=== PATIENT | male | born 1945 | race Caucasian/White ===

== ENCOUNTER 2018-06-10 09:35 | Inpatient (IN) ==
--- OUTSIDE RECORDS SUMMARY | 2018-06-10 09:38 | External Medical Summary | Continuity of Care Document ---
:1945 Author Name Rafy Wright Address Unavailable Unavailable , Care Team Providers Name Role Phone Sherie Perrin DO Unavailable [email or web address] Unavailable Unavailable Problems Active medical history not documented Allergies and Adverse Reactions Allergy history not documented Medications Medications not documented Procedures Procedures not documented Immunizations Immunizations not documented Plan of Treatment Planned Observations Planned Goals not documented Results No Known Results Results not documented
[2018-06-10 10:18] LABS: Basophils # (auto) 0.03 K/uL (0-0.2); Basophils % (auto) 0.3 %; Eosinophils # (auto) 0.12 K/uL (0-0.5); Eosinophils % (auto) 1.3 %; Hematocrit (blood only) 40.4 % (42-52); Hemoglobin 14.1 g/dL (14.0-18.0); Immature Granulocytes # (auto) 0.03 K/uL (0.00-0.02); Immature Granulocytes % (auto) 0.3 %; Lymphocytes # (auto) 3.53 K/uL (1.2-3.4); Lymphocytes % (auto) 37.4 %; Mean Corpuscular Hgb Conc 34.9 g/dL (32-36); Mean Corpuscular Volume 86.7 fL (80-100); Monocytes # (auto) 0.63 K/uL (0.11-0.59); Monocytes % (auto) 6.7 %; Neutrophils # (auto) 5.11 K/uL (1.4-6.5); Platelet Count 248 K/uL (130-400); RDW Coefficient of Variation 13.4 % (11.5-14.5); RDW Standard Deviation 42.5 fL (36.4-46.3); Red Blood Count 4.66 M/uL (4.7-6.1); White Blood Count 9.45 K/uL (4.8-10.8)
--- NOTE | 2018-06-10 10:21 | XRay Report ---
XR chest 1V portable CLINICAL HISTORY: Chest Pain dyspnea COMPARISON STUDY: No previous studies for comparison. FINDINGS: The bones soft tissues and hemidiaphragms are normal. The cardiomediastinal silhouette is n ormal. The lungs are clear. The pulmonary vasculature is normal. IMPRESSION: Negative chest. The above report was generated using voice recognition software. It may contain grammatical, syntax or spelling errors. Electronically signed by: Jerome Munguia M.D. 06/10/2018 10:19 AM
[2018-06-10 10:27] LABS: BUN Creatinine Ratio 14.2 (10-20); Calcium 8.9 mg/dl (8.5-10.1); Creatinine Clr Calc Pharmacy 67.9 ml/min; Est GFR (Non-African American) 67.3; Potassium 3.5 mmol/L (3.5-5.1)
[2018-06-10 10:46] LABS: Albumin Globulin Ratio 1.1 (0.9-2); Bilirubin,Total 0.6 mg/dl (0.2-1); Globulin 3.5 gm/dl (2.5-4.0); Total Protein 7.5 gm/dl (6.4-8.2); Troponin I 0.105 ng/ml (0-0.045)
[2018-06-10] MEDS ORDERED: dilTIAZem HCl 5 MG/ML 5 ML VIAL IV STA (10:51)
[2018-06-10] MEDS ORDERED: ASPIRIN CHEW 324 MG PO STA (10:52)
[2018-06-10] MEDS: dilTIAZem HCl 125 MG in DEXTROSE 5% 100 ML IV SCH ×2 (12:03→22:59)
--- NOTE | 2018-06-10 13:10 | History & Physical Report ---
Date of Service June 10, 2018 Assessment & Plan (1) A-fib: - Admit to tele - New onset afib with RVR - likely has been ongoing for years however has not been caught on EKG until today while he was at a routine PCP appt. EKG reviewed - Cardiology consulted- [facility]: pt moving to [place] at the end of the month -so will need to have cardiology followup established. - Cardizem gtt started in the ER - initiate Cardizem 30 mg TID now and can convert to ER with am dosing if works well - Start Eliquis 5 mg BID - 2D echo - Trend troponins x 2 more sets - PT/OT consults (2) Dizziness: Secondary to above (3) Elevated troponin: - Trop 0.105, will trend x2 more sets - Likely demand ischemia due to afib (4) HTN (hypertension): - Continue amlodipine 10 mg daily, asa 81 mg daily, losartan 50 mg PO BID - Initiation of cardizem as above (5) HLD (hyperlipidemia): - Continue statin therapy (6) DM II (diabetes mellitus, type II), controlled: - A1C recently checked by PCP and reported as 7 by pt. - ISS with accuchecks while admitted - Hold metformin - HH/DM diet (7) DVT prophylaxis: - teds, scds, lovenox subq History of Present Illness Primary Care Provider: Guera García PA-C This is a 72 yo M with PMHx of afib, HTN, HLD, DM II and remote hx of tobacco use, [facility] with [facility]. Pt notes he has been experiencing episodes of lightheadedness on and off for about the past 3 years, however it has become much more often in the last month, where he has this sensation between 1-4x daily. It is a quickly fleeting moment of lightheadedness, which lasts for several seconds to a few minutes and normally improves when he sits down to rest. The pt is a very active individual who is employed by [employer] and works 2-3d per week, fishes as a hobby, and is an avid ping pong player at [place]; [facility] he [facility]. He denies any shortness of breath, chest pain, heaviness or other cardiac complaints. Allergies Allergy/AdvReac Type Severity Reaction Status Date / Time No Known Allergies Allergy Unverified 06/10/18 11:06 Home Medications Home Medications Medication Instructions Recorded Confirmed Type amlodipine 10 mg PO DAILY 06/10/18 06/10/18 History aspirin [Aspirin Low Dose] 81 mg PO DAILY 06/10/18 06/10/18 History atorvastatin 40 mg PO HS 06/10/18 06/10/18 History calcium carbonate 500 mg PO DAILY 06/10/18 06/10/18 History hydrochlorothiazide 12.5 mg PO DAILY 06/10/18 06/10/18 History losartan 50 mg PO BID 06/10/18 06/10/18 History metformin 1,000 mg PO BID 06/10/18 06/10/18 History ranitidine HCl 150 mg PO BID 06/10/18 06/10/18 History tamsulosin 0.4 mg PO DAILY 06/10/18 06/10/18 History Past Med/Surg History Medical History HLD (hyperlipidemia) HTN (hypertension) DM II (diabetes mellitus, type II), controlled A-fib (Acute) Elevated troponin (Acute) No significant past medical history Surgical History No significant past surgical history Social History Preferred Language: Citizen Of [place] Communication Ability: Effective Roll Wrapper Required: No Beliefs That Will Affect Care: None Current Living Situation: Spouse Other Information That Helps Us Care for You: No Feels Safe at Home: Yes Safety Concerns: Feels Safe At This Time Smoking Status: Light tobacco smoker Tobacco Type: cigars Cigarettes Per Day: occasion when golfing Do You Dip or Chew Tobacco: No Smoking End Date: cigarrettes ended 1971 Second Hand Exposure: No Tobacco Cessation Education Requested by Patient: No Hx Alcohol Use: Yes Alcohol type: wine Hx Substance Use: No Review of Systems Review of Systems: Constitutional: No fever, sweats or chills, + lightheadedness per HPI. Eyes: No diplopia, no worsening or blurred vision ENT: normal hearing, no trouble swallowing Respiratory: No cough, sputum, dyspnea at rest or on exertion Cardiovascular: No chest pain, tightness or palpitations Abdomen: No pain, nausea, vomiting, diarrhea or constipation Musculoskeletal: No joint pain, calf pain, swelling Neurologic: No weakness, numbness/tingling, or balance problems Psychiatric: No anxiety or depression Skin: No rash or itch Physical Exam Physical Exam: General: awake, alert, no apparent distress, appears younger than stated age Head: Normocephalic, atraumatic ENT: PERRL, EOMI, no pharyngeal exudate, mucous membranes moist Chest: Clear to auscultation, on room air, no adventitious breath sounds Cardiac: irregularly irregular, no murmur, no JVD, normal peripheral pulses, good capillary refill Abdominal: NABS x 4 quadrants, soft, nontender to palpation, no rebound, guarding or tenderness Extremities: Normal inspection, no peripheral edema or erythema, calfs nontender to palpation Psych: Normal mood and affect Neuro: AAO x 3, strength intact bilaterally and related 5/5, no motor deficits, speech is clear, no peripheral sensory deficits Results & Data Vital Signs (Past 12 Hours) Vital Signs Temp Pulse Resp BP Pulse Ox 06/10/18 11:31 100 H 23 124/91 94 06/10/18 11:01 107 H 19 134/95 95 06/10/18 10:31 107 H 26 H 117/89 06/10/18 10:02 111 H 17 112/90 95 06/10/18 09:51 95 06/10/18 09:49 36.5 C 100 H 18 152/93 H 95 06/10/18 09:45 111 H 21 152/93 H 93 Diagnostic Findings XR chest 1V portable CLINICAL HISTORY: Chest Pain dyspnea COMPARISON STUDY: No previous studies for comparison. FINDINGS: The bones soft tissues and hemidiaphragms are normal. The cardiomediastinal silhouette is normal. The lungs are clear. The pulmonary vasculature is normal. IMPRESSION: Negative chest. ECG Additional Comments: 10-JUN-2018 09:45:07 [facility]-EDSTAT ROUTINE RETRIEVAL Atrial fibrillation Nonspecific T wave abnormality Abnormal ECG No previous ECGs available 25mm/s 10mm/mV 150Hz 9.0.8 12SL 241 INGE: 11 Referred by: REFERRED SELF Unconfirmed Vent. rate 91 BPM IN interval * ms QRS duration 94 ms QT/QTc 366/450 ms P-R-T axes * 15 3 Code Status & VTE Plan Code Status Full code- no heroic measures Supervising Physician Co-Signing Physician Notes Pt seen/examined in conjunction with HANY Snow. Orders and plan of admission and then DC formulated with HANY. 72 y/o M Hx HTN, HLD, DM II, BPH, GERD. Presents with lightheadedness - AF RVR on arrival. Denies prior knowledge of AF or history of CAD. Has not had any episodes of CP. The pt was initially admitted due to a relatively high CHADS. After receiving a bolus of Cardizem, the pt converted to a sinus rhythm. OE AAO x 3 S1,2 irregular CTAB NT, ND, BS + No CCE No deficits P: We are pending word from cardiology to offer the pt outpt follow-up. We would be placing him on Metoprolol and Eliquis and may want to hold his Nor vasc. No other changes will be effected to his current regimen. (1) A-fib Atrial fibrillation type: unspecified Qualified Code(s): I48.91 - Unspecified atrial fibrillation
[2018-06-10] MEDS ORDERED: ONDANSETRON INJ 2 MG/ML 2 ML VIAL IV PRN (13:13)
[2018-06-10] MEDS ORDERED: ACETAMINOPHEN 325 MG TAB PO PRN (13:13)
[2018-06-10] MEDS ORDERED: ENOXAPARIN INJ 40 MG/0.4 ML SYR SQ SCH (13:15)
--- NOTE | 2018-06-10 14:20 | Emergency Department Note ---
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 The patient reports that he was evaluated by his PCP earlier today for a persistent lightheadedness and was referred to the ER after they obtained an EKG which showed new onset a-fib. He states that his lightheadedness feels like right before youre going to sleep and notes he did feel as if he were about pass out. He denies any chest pain, shortness of breath, nausea, vomiting, diarrhea or numbness but reports he has been weak. No other exacerbating or remitting factors at this time. Home Medications Home Medications Medication Instructions Recorded Confirmed Type amlodipine 10 mg PO DAILY 06/10/18 06/10/18 History aspirin [Aspirin Low Dose] 81 mg PO DAILY 06/10/18 06/10/18 History atorvastatin 40 mg PO HS 06/10/18 06/10/18 History calcium carbonate 500 mg PO DAILY 06/10/18 06/10/18 History hydrochlorothiazide 12.5 mg PO DAILY 06/10/18 06/10/18 History losartan 50 mg PO BID 06/10/18 06/10/18 History metformin 1,000 mg PO BID 06/10/18 06/10/18 History ranitidine HCl 150 mg PO BID 06/10/18 06/10/18 History tamsulosin 0.4 mg PO DAILY 06/10/18 06/10/18 History Allergies Allergy/AdvReac Type Severity Reaction Status Date / Time No Known Allergies Allergy Unverified 06/10/18 11:06 Past Med/Surg History Medical History HLD (hyperlipidemia) HTN (hypertension) DM II (diabetes mellitus, type II), controlled A-fib (Acute) Elevated troponin (Acute) No significant past medical history Surgical History No significant past surgical history Social History Preferred Language: Egyptian Communication Ability: Effective Training Executive Required: No Beliefs That Will Affect Care: None Current Living Situation: Spouse Other Information That Helps Us Care for You: No Feels Safe at Home: Yes Safety Concerns: Feels Safe At This Time Smoking Status: Light tobacco smoker Tobacco Type: cigars Cigarettes Per Day: occasion when golfing Do You Dip or Chew Tobacco: No Smoking End Date: cigarrettes ended 1971 Second Hand Exposure: No Tobacco Cessation Education Requested by Patient: No Hx Alcohol Use: Yes Alcohol type: wine Hx Substance Use: No Review of Systems See HPI for pertinent positives & negatives. and A total of 10 systems reviewed and were otherwise negative Physical Exam Vital Signs Vital Signs - 24 hr 06/10/18 09:45 06/10/18 09:49 06/10/18 09:51 Temperature 36.5 C Temperature Source Oral Sepsis Recent Fever Within 48 Hours No Sepsis New/Unexplained Change in Mental Status No Sepsis Action Taken by Nursing No Action Required Pulse Rate 111 H 100 H Pulse Rate from SpO2 Sensor 92 H Respiratory Rate 21 18 Blood Pressure 152/93 H 152/93 H Blood Pressure Mean 112 112 Pulse Oximetry 93 95 95 Oxygen Delivery Method Room Air Room Air 06/10/18 10:02 06/10/18 10:31 06/10/18 11:01 Temperature Temperature Source Sepsis Recent Fever Within 48 Hours Sepsis New/Unexplained Change in Mental Status Sepsis Action Taken by Nursing Pulse Rate 111 H 107 H 107 H Pulse Rate from SpO2 Sensor 84 78 Respiratory Rate 17 26 H 19 Blood Pressure 112/90 117/89 134/95 Blood Pressure Mean 97 98 108 Pulse Oximetry 95 95 Oxygen Delivery Method 06/10/18 11:31 06/10/18 12:01 06/10/18 12:31 Temperature Temperature Source Sepsis Recent Fever Within 48 Hours Sepsis New/Unexplained Change in Mental Status Sepsis Action Taken by Nursing Pulse Rate 100 H 112 H 96 H Pulse Rate from SpO2 Sensor 80 75 93 H Respiratory Rate 23 23 23 Blood Pressure 124/91 127/87 125/98 Blood Pressure Mean 102 100 107 Pulse Oximetry 94 94 95 Oxygen Delivery Method 06/10/18 13:01 06/10/18 13:31 06/10/18 14:01 Temperature Temperature Source Sepsis Recent Fever Within 48 Hours Sepsis New/Unexplained Change in Mental Status Sepsis Action Taken by Nursing Pulse Rate 109 H 107 H 108 H Pulse Rate from SpO2 Sensor 82 85 102 H Respiratory Rate 20 24 14 Blood Pressure 116/90 108/91 109/91 Blood Pressure Mean 98 96 97 Pulse Oximetry 93 96 91 Oxygen Delivery Method GENERAL: Sitting up in bed, alert, well appearing, well nourished, no distress, non-toxic EYE EXAM: normal conjunctiva. OROPHARYNX: no exudate, no erythema, lips, buccal mucosa, and tongue normal and mucous membranes are moist NECK: supple, no nuchal rigidity, no adenopathy, non-tender LUNGS: Clear to auscultation. Normal chest wall mechanics HEART: Tachycardic. No murmurs, S1 normal and S2 normal ABDOMEN: abdomen soft, non-tender, normo-active bowel sounds, no masses, no rebound or guarding. BACK: Back is symmetrical on inspection and there is no deformity, no midline tenderness, no CVA tenderness. SKIN: no rashes and no bruising UPPER EXTREMITIES: upper extremities are grossly normal. LOWER EXTREMITIES: No pitting edema. NEURO EXAM: Normal sensorium, cranial nerves II-XII grossly intact, normal speech, no gross weakness of arms, no gross weakness of legs. Course ED COURSE: Vital signs were reviewed and showed tachycardia. The patients medical record was reviewed The above diagnostic studies were performed and reviewed. ED treatments and interventions as stated above. 1000: The patient was evaluated in room C4. A complete history and physical examination was performed. 1050: Upon reevalaution, the patient's heart rate was in the 117s-120s. 1142: I discussed the patient's case with Dr. Szymanski - [facility] Hospitalist. He will evaluate the patient for further management. 1150: .I discussed my findings with the patient and he understands and agrees with the treatment plan. Based on the patients age, coexisting illnesses, exam and lab findings the decision to treat as an inpatient was made. The patient remained stable while under my care. The patient will be evaluated for further management. Administered Medications Diltiazem HCl 125 mg/ Dextrose 125 mls @ 5 mls/hr IV .Q24H [facility]; Protocol Stop: 07/10/18 10:59 Last Titration: 06/10/18 13:28 Dose: 10 mg/hr, 10 mls/hr Documented by: [id number] Admin: 06/10/18 12:03 Dose: 5 mg/hr, 5 mls/hr Documented by: [id number] Cosigned by: [id number] Discontinued Medications Aspirin (Aspirin) 324 mg PO NOW STA Stop: 06/10/18 10:53 Last Admin: 06/10/18 11:22 Dose: 324 mg Documented by: [id number] Diltiazem HCl (Cardizem) 5 mg IV NOW STA Stop: 06/10/18 10:52 Last Admin: 06/10/18 11:22 Dose: 5 mg Documented by: [id number] Cosigned by: [id number] Medical Decision Making Differential Diagnosis Differential diagnoses includes but is not limited to acute coronary syndrome, m yocardial infarction, pericarditis, pulmonary embolus, aortic dissection, pneumonia, pneumothorax, musculoskeletal, shingles, esophageal. Medical Records Attestation: I reviewed the patient's medical records. Home Medications Current Medication List: was personally reviewed by me Laboratory Data Attestation: I reviewed the patient's lab results. Result diagrams: 06/10/18 09:18 06/10/18 09:18 Lab Results 06/10/18 06/10/18 Range/Units 09:18 09:18 WBC 9.45 (4.8-10.8) K/uL RBC 4.66 L (4.7-6.1) M/uL Hgb 14.1 (14.0-18.0) g/dL Hct 40.4 L (42-52) % MCV 86.7 (80-100) fL MCH 30.3 (25-34) pg MCHC 34.9 (32-36) g/dL RDW Std Deviation 42.5 (36.4-46.3) fL RDW Coeff of Nancy 13.4 (11.5-14.5) % Plt Count 248 (130-400) K/uL MPV 11.0 H (7.4-10.4) fL Immature Gran % (Auto) 0.3 % Neut % (Auto) 54.0 % Lymph % (Auto) 37.4 % [place] % (Auto) 6.7 % Eos % (Auto) 1.3 % Baso % (Auto) 0.3 % Immature Gran # (Auto) 0.03 H (0.00-0.02) K/uL Neut # (Auto) 5.11 (1.4-6.5) K/uL Lymph # (Auto) 3.53 H (1.2-3.4) K/uL [place] # (Auto) 0.63 H (0.11-0.59) K/uL Eos # (Auto) 0.12 (0-0.5) K/uL Baso # (Auto) 0.03 (0-0.2) K/uL Sodium 139 (136-145) mmol/L Potassium 3.5 (3.5-5.1) mmol/L Chloride 107 (98-107) mmol/L Carbon Dioxide 26 (21-32) mmol/L Anion Gap 6.0 (3-11) BUN 15 (7-18) mg/dl Creatinine 1.08 (0.6-1.4) mg/dl Est Cr Clr Drug Dosing 67.9 ml/min Est GFR ( Amer) 78.0 Est GFR (Non-Af Amer) 67.3 BUN/Creatinine Ratio 14.2 (10-20) Glucose 161 H (70-99) mg/dl Calcium 8.9 (8.5-10.1) mg/dl Total Bilirubin 0.6 (0.2-1) mg/dl AST 14 L (15-37) U/L ALT 27 (12-78) U/L Alkaline Phosphatase 98 (45-117) U/L Troponin I 0.105 H* (0-0.045) ng/ml Total Protein 7.5 (6.4-8.2) gm/dl Albumin 4.0 (3.4-5.0) gm/dl Globulin 3.5 (2.5-4.0) gm/dl Albumin/Globulin Ratio 1.1 (0.9-2) Lipase 123 (73-393) U/L Imaging Data Radiologist's Impression: Radiology results as stated below per my review and the radiologist's interpretation: XR chest 1V portable CLINICAL HISTORY: Chest Pain dyspnea COMPARISON STUDY: No previous studies for comparison. FINDINGS: The bones soft tissues and hemidiaphragms are normal. The cardiomediastinal silhouette is normal. The lungs are clear. The pulmonary vasculature is normal. IMPRESSION: Negative chest. The above report was generated using voice recognition software. It may contain grammatical, syntax or spelling errors. Electronically signed by: Jerome Munguia M.D. 06/10/2018 10:19 AM ECG Data Attestation: I personally reviewed and interpreted this ECG as follows: Indication: weakness Rate (beats per minute): 91 Rhythm: atrial fibrillation Findings: + other (normal axis, poor baseline in aVF); no PVC Blood Pressure Blood Pressure Findings: Normal blood pressure Blood Pressure Disposition: did not require urgent referral MDM Narrative Patient is a 72-year-old male who presents and referred in by PCP for EKG showing A. fib RVR in combination with lightheadedness and weakness. This is been worse over the past 3 months. Labs were obtained and showed no significant leukocytosis or anemia. BMP along with LFTs bilirubin was unremarkable. Troponin was detectable at 0.105. Lipase was normal. Patient denies any chest pain or shortness of breath. He was given aspirin fluids and placed on a Cardizem drip and given IV bolus of Cardizem. With him and his significant other were updated bedside. They were discussed with the hospitalist patient was admitted for A. fib with RVR and a slightly elevated troponin which I question if it secondary to demand ischemia. Patient was monitored closely while in the ER. Impression & Plan A-fib, Elevated troponin, Dizziness Critical Care Time I have personally spent 35 minutes of critical care time in the direct management of this patient. This includes bedside care, interpretation of diagnostic studies, and testing, discussion with consultants, patient, and family members, and other required patient management activities. This 35 minutes is in excess of all separately billable procedures. Critical Care Time: Yes Total Critical Care Time: 35 Discharge Plan Visit Data Chief Complaint: Cardiac Assessment Stated Complaint: dizzy/weakness ED Provider: Jhon Montalvo Discharge Problem: A-fib, Elevated troponin, Dizziness Patient Disposition: Being Evaluated by Hospitalist Forms Stand Alone Forms: My [facility] Prescriptions Prescriptions: No Action losartan 50 mg Tablet 50 mg PO BID RF: 0 atorvastatin 80 mg Tablet 40 mg PO HS RF: 0 aspirin [Aspirin Low Dose] 81 mg Tablet,Delayed Release (Dr/Ec) 81 mg PO DAILY RF: 0 calcium carbonate 500 mg calcium (1,250 mg) Tablet 500 mg PO DAILY RF: 0 tamsulosin 0.4 mg Capsule 0.4 mg PO DAILY RF: 0 amlodipine 10 mg Tablet 10 mg PO DAILY RF: 0 metformin 1,000 mg Tablet 1,000 mg PO BID RF: 0 ranitidine HCl 150 mg Tablet 150 mg PO BID RF: 0 hydrochlorothiazide 25 mg Tablet 12.5 mg PO DAILY RF: 0 Referrals Referrals: Guera García PA-C [Primary Care Provider] - Discharge Problem: A-fib Qualifiers: Atrial fibrillation type: unspecified Qualified Code(s): I48.91 - Unspecified atrial fibrillation The scribe's documentation has been prepared under my direction and personally reviewed by me in its entirety. I confirm that the note above accurately reflects all work, treatment, procedures, and medical decision making performed by me.
[2018-06-10] MEDS ORDERED: DEXTROSE 50% 50 ML SYRINGE IV PRN (14:50)
[2018-06-10] MEDS ORDERED: GLUCAGON FOR INJ 1 MG VIAL SQ PRN (14:50)
[2018-06-10] MEDS ORDERED: GLUCOSE 10 TABS/TUBE PO PRN (14:50)
[2018-06-10] MEDS ORDERED: GLUCOSE 40% GEL 15 GM TUBE PO PRN (14:50)
[2018-06-10] MEDS ORDERED: CARBOHYDRATES FOR HYPOGLYCEMIA PO PRN (14:50)
--- NOTE | 2018-06-10 15:37 | Cardiology Consultation ---
Date of Consultation June 10, 2018 Assessment & Plan (1) A-fib: He has newly diagnosed atrial fibrillation but I cannot tell from history how long he has had it. He has had an extensive evaluation here a year and a half ago for dizziness which included stress testing and certainly it would have been picked up then had he been in it. He has been more tired over the last 2 to 3 months so perhaps that is his only symptom. I doubt it started today and I doubt it explains the lightheadedness since that has been ongoing. We do need to get him on an anticoagulant, I prefer the newer agents, and agree with rate control. Perhaps switching his amlodipine to diltiazem would be a reasonable o ption. I will make those changes. (2) Dizziness: He has had intermittent dizziness for a year or 2, he describes what sounds like presyncope but he has never had syncope. I do not think those symptoms are due to atrial fibrillation itself since he is not having symptoms like that at the moment and he is in atrial fibrillation, but he does feel that the episodes are more frequent recently. Perhaps they are bradycardia with termination of atrial fibrillation, it is possible they are rapid heart rates which make him feel that way during atrial fibrillation although they seem to transient for that. I would treat his atrial fibrillation with rate control, and I would plan on long-term monitoring to evaluate his symptoms of lightheadedness. (3) Elevated troponin: He has a slightly elevated troponin on presentation. I would trend his troponin to see where it goes and if this is a consistent elevation, if it is related to his atrial fibrillation (such as having a descending pattern) that would suggest that his atrial fibrillation is of recent onset rather than being present for some months. I doubt this represents an acute ischemic event although perhaps we will have to consider stress testing depending on the pattern History of Present Illness Reason for Consultation: Atrial fibrillation with rapid ventricular response Attending Physician: Alvarado Szymanski MD History of Present Illness This is a very pleasant 72-year-old gentleman who has a history of hypertension and hyperlipidemia but no known heart disease until being identified as having atrial fibrillation today. He does have some symptoms that could be cardiac, a year or year and a half ago [facility] of intermittent lightheadedness which sound almost like presyncope when he describes them. He had a number of tests performed including what sounds like a stress echo or possibly a stress nuclear study, as well as an electrocardiogram and apparently nothing abnormal was identified. It does not sound as though he wore a monitor how ever. He describes these episodes of lightheadedness and presyncope going back a year and a half or 2 years, often occurring when he is quite active such as playing pickle ball (which he used to play frequently but now plays ping-pong due to some leg trouble), they have become more frequent over the last month or 2 but seems similar to what he was experiencing a year ago. He notes that he is more tired now over the last several months then he has been in the past and feels like he has to sleep more. He is unaware of palpitations and there is been no dramatic change in his symptoms. He is moving and has been packing up his house and has been able to do that. Today he went in to see his PCP who observed that he was in atrial fibrillation and sent him to the emergency room. He does not really feel any different now than he has recently. He has not had significant shortness of breath, he does not have orthopnea, PND and he has never had exertional chest discomfort. He has no peripheral edema. In the emergency room he was noted to be in atrial fibrillation and was started on intravenous diltiazem. Allergies Allergy/AdvReac Type Severity Reaction Status Date / Time No Known Allergies Allergy Unverified 06/10/18 11:06 Home Medications Home Medications Medication Instructions Recorded Confirmed Type amlodipine 10 mg PO DAILY 06/10/18 06/10/18 History aspirin [Aspirin Low Dose] 81 mg PO DAILY 06/10/18 06/10/18 History atorvastatin 40 mg PO HS 06/10/18 06/10/18 History calcium carbonate 500 mg PO DAILY 06/10/18 06/10/18 History hydrochlorothiazide 12.5 mg PO DAILY 06/10/18 06/10/18 History losartan 50 mg PO BID 06/10/18 06/10/18 History metformin 1,000 mg PO BID 06/10/18 06/10/18 History ranitidine HCl 150 mg PO BID 06/10/18 06/10/18 History tamsulosin 0.4 mg PO DAILY 06/10/18 06/10/18 History Patient History Medical History HLD (hyperlipidemia) HTN (hypertension) DM II (diabetes mellitus, type II), controlled A-fib (Acute) Elevated troponin (Acute) No significant past medical history Surgical History No significant past surgical history Social History Preferred Language: Kiswahili Communication Ability: Effective Patient Carrier Required: No Beliefs That Will Affect Care: None Current Living Situation: Spouse Other Information That Helps Us Care for You: No Feels Safe at Home: Yes Safety Concerns: Feels Safe At This Time Smoking Status: Light tobacco smoker Tobacco Type: cigars Cigarettes Per Day: occasion when golfing Do You Dip or Chew Tobacco: No Smoking End Date: cigarrettes ended 1972 Second Hand Exposure: No Tobacco Cessation Education Requested by Patient: No Hx Alcohol Use: Yes Alcohol type: wine Hx Substance Use: No Physical Exam Physical Exam: Constitutional: Alert, cooperative and in no distress. HEENT: Unremarkable Neck: No jugular venous distention, carotid pulses are irregular but otherwise normal and equal bilaterally without bruits. Pulmonary: Clear to auscultation bilaterally. Cardiac: Irregular rhythm with no murmur, gallop or rub. Abdomen: Soft, nontender with normal bowel sounds. Extremities: No edema. Distal pulses intact. Neurologic: No focal findings. Gait is steady. Skin: No rash, ecchymoses or petechiae. Results & Data Vital Signs (Past 12 Hours) Vital Signs Temp Pulse Pulse Resp BP BP Pulse Ox 06/10/18 14:50 36.5 C 94 H 20 143/89 H 94 06/10/18 14:01 108 H 14 109/91 91 06/10/18 13:31 107 H 24 108/91 96 06/10/18 13:01 109 H 20 116/90 93 06/10/18 12:31 96 H 23 125/98 95 06/10/18 12:01 112 H 23 127/87 94 06/10/18 11:31 100 H 23 124/91 94 06/10/18 11:01 107 H 19 134/95 95 06/10/18 10:31 107 H 26 H 117/89 06/10/18 10:02 111 H 17 112/90 95 06/10/18 09:51 95 06/10/18 09:49 36.5 C 100 H 18 152/93 H 95 06/10/18 09:45 111 H 21 152/93 H 93 Diagnostic Findings An electrocardiogram on admission demonstrates atrial fibrillation with a heart rate of 91 bpm, there are minor ST-T abnormalities but no acute changes. A chest x-ray today is unremarkable Telemetry: He remains in atrial fibrillation with a heart rate of 100-120, little change since presentation. (1) A-fib Atrial fibrillation type: unspecified Qualified Code(s): I48.91 - Unspecified atrial fibrillation
[2018-06-10] MEDS: dilTIAZem HCL 30 MG TAB PO SCH ×2 (16:22→20:45)
[2018-06-10] MEDS: INSULIN ASPART 100 UNITS/ML 3 ML PEN SC SCH ×2 (17:20→20:27)
[2018-06-10] MEDS: APIXABAN 5 MG TABLET PO SCH (20:45)
[2018-06-10] MEDS: LOSARTAN POTASSIUM 50 MG TAB PO SCH (20:46)
[2018-06-10] MEDS ORDERED: ATORVASTATIN 40 MG TAB PO SCH (21:00)
[2018-06-11 07:29] LABS: Hematocrit (blood only) 39.8 % (42-52); Hemoglobin 13.7 g/dL (14.0-18.0); Mean Corpuscular Hgb Conc 34.4 g/dL (32-36); Mean Corpuscular Volume 86.5 fL (80-100); Mean Platelet Volume 10.5 fL (7.4-10.4); Platelet Count 234 K/uL (130-400); RDW Coefficient of Variation 13.4 % (11.5-14.5); RDW Standard Deviation 42.6 fL (36.4-46.3); White Blood Count 9.44 K/uL (4.8-10.8)
[2018-06-11 08:02] LABS: Albumin Level 3.9 gm/dl (3.4-5.0); BUN Creatinine Ratio 14.7 (10-20); Calcium 8.7 mg/dl (8.5-10.1); Creatinine Clr Calc Pharmacy 69.8 ml/min; Est GFR (African American) 80.7; Est GFR (Non-African American) 69.6; Potassium 3.4 mmol/L (3.5-5.1)
[2018-06-11 08:04] LABS: Albumin Globulin Ratio 1.3 (0.9-2); Bilirubin,Total 0.8 mg/dl (0.2-1); Total Protein 6.9 gm/dl (6.4-8.2)
[2018-06-11] MEDS: APIXABAN 5 MG TABLET PO SCH (08:41)
[2018-06-11] MEDS: dilTIAZem HCL 30 MG TAB PO SCH ×2 (08:41→14:33)
[2018-06-11] MEDS: LOSARTAN POTASSIUM 50 MG TAB PO SCH (08:41)
[2018-06-11] MEDS: INSULIN ASPART 100 UNITS/ML 3 ML PEN SC SCH ×3 (08:42→16:56)
[2018-06-11] MEDS ORDERED: AMLODIPINE BESYLATE 5 MG TAB PO SCH (09:00)
[2018-06-11] MEDS ORDERED: ASPIRIN 81 MG ECTAB PO SCH (09:00)
[2018-06-11] MEDS ORDERED: TAMSULOSIN HCL 0.4 MG CAP PO SCH (09:00)
[2018-06-11] MEDS ORDERED: CALCIUM CARBONATE 1250MG TAB PO SCH (09:00)
[2018-06-11] MEDS ORDERED: POTASSIUM CHLORIDE 20 MEQ TABCR PO STA (09:22)
--- NOTE | 2018-06-11 10:57 | Cardiology Progress Note ---
Date of Service June 11, 2018 Assessment & Plan (1) A-fib: He has newly diagnosed atrial fibrillation but I cannot tell from history how long he has had it. He has had an extensive evaluation here a year and a half ago for dizziness which included stress testing and certainly it would have been picked up then had he been in it. He has been more tired over the last 2 to 3 months so perhaps that is his only symptom. Now with spontaneously conversion to sinus rhythm without symptoms it is likely he has paroxysmal atrial fibrillation and I am not clear whether he has symptoms related to it. Perhaps some of his dizziness is due to episodes of atrial fibrillation or the transition back to sinus rhythm. He should remain on anticoagulation and I recommended he discontinue aspirin as there is no clear reason for him to be on both. He should continue rate control. (2) Dizziness: He has had intermittent dizziness for a year or 2, he describes what sounds like presyncope but he has never had syncope. I do not think those symptoms are due to atrial fibrillation itself since he is not having symptoms here during atrial fibrillation, but he does feel that the episodes are more frequent recently. Perhaps they are bradycardia with termination of atrial fibrillation, it is possible they are rapid heart rates which make him feel that way during atrial fibrillation although they seem to transient for that. I would treat his atrial fibrillation with rate control, and I would plan on long- term monitoring to evaluate his symptoms of lightheadedness. If he goes home today I would plan on having him stop by the office and grape picker an event recorder. I will make those arrangements and a follow-up visit, which I have put in his discharge instructions. (3) Elevated troponin: He has a slightly elevated troponin with a quite flat pattern. I cannot really explain the troponin but I doubt this represents an acute ischemic event I do not think I would perform stress testing based on this pattern with no symptoms and no electrocardiographic changes. Subjective He is feeling well today. He was not aware of his arrhythmia on presentation, and he does not feel different now with normal rhythm. He has not had any of the dizziness since hospitalization. Physical Exam Physical Exam: Constitutional: Alert, cooperative and in no distress. Pulmonary: Clear to auscultation bilaterally. Cardiac: Regular rhythm with no murmur, gallop or rub. Abdomen: Soft, nontender with normal bowel sounds. Extremities: No edema. Skin: No rash, ecchymoses or petechiae. Results & Data Vital Signs (Past 12 Hours) Vital Signs Temp Pulse Resp BP Pulse Ox 06/11/18 08:06 36.8 C 76 18 129/68 96 06/11/18 03:22 36.6 C 53 L 19 124/70 96 06/10/18 23:34 36.6 C 50 L 19 124/71 93 Diagnostic Findings Telemetry: Atrial fibrillation until 2027 last evening when he converted to sinus rhythm, there is no significant pause at the time. Electrocardiogram postconversion: Sinus rhythm rate 50, no significant abnormalities Echocardiogram: Normal left ventricular function, borderline LVH (1) A-fib Atrial fibrillation type: unspecified Qualified Code(s): I48.91 - Unspecified atrial fibrillation
[2018-06-11 12:07] VITALS: TEMP 98.1
[2018-06-11] MEDS: dilTIAZem HCl 125 MG in DEXTROSE 5% 100 ML IV SCH (14:34)
[2018-06-11 15:07] VITALS: BP 133/87; O2SAT 93
--- NOTE | 2018-06-11 16:00 | Discharge Summary ---
Date of Service June 11, 2018 Admission HPI Per Admitting Provider This is a 72 yo M with PMHx of afib, HTN, HLD, DM II and remote hx of tobacco use, [facility] with [facility]. Pt notes he has been experiencing episodes of lightheadedness on and off for about the past 3 years, however it has become much more often in the last month, where he has this sensation between 1-4x daily. It is a quickly fleeting moment of lightheadedness, which lasts for several seconds to a few minutes and normally improves when he sits down to rest. The pt is a very active individual who is employed by [employer] and works 2-3d per week, fishes as a hobby, and is an avid ping pong player at [place]. He denies any shortness of breath, chest pain, heaviness or other cardiac complaints. Principal Diagnosis Rapid atrial fibrillation Discharge Exam Constitutional WD/WN, vitals as above Eyes PERRL, conjunctivae normal, anicteric sclerae ENMT external ear and nose normal, oropharynx normal Neck trachea midline, no thyromegaly Respiratory normal respiratory effort, lungs clear to auscultation Cardiovascular RRR, no murmur, no edema Gastrointestinal (Abdomen) normal bowel sounds, soft, nontender, no hepatosplenomegaly Musculoskeletal Extremities: extremities normal to inspection; no cyanosis and no clubbing Skin no rashes, warm and dry Neurologic moves all extremities and awake; no focal motor deficits Psychiatric A+Ox3, euthymic affect Discharge Data Allergies Allergy/AdvReac Type Severity Reaction Status Date / Time No Known Allergies Allergy Unverified 06/10/18 11:06 Consultations Cardiology Procedures Performed ECHO Ordered Studies CXR Hospital Course (1) A-fib: - He was admitted to telemetry and converted to a NSR spontaneously a few hours later after admission. He had sinus bradycardia and no significant pauses during the conversion to explain his symptoms of dizziness. - New onset afib with RVR - likely has been ongoing for years however has not been caught on EKG until he was at a routine PCP appt. - He was initially placed on a diltiazem gtt and then converted to po diltiazem 120mg po daily for rate control -he was started on Eliquis 5 mg po BID for anticoagulation for reduction of risk of thromboembolism - ECHO was performed which showed normal valves and normal LV function - Cardiology consulted- [facility]: pt moving to [place] at the end of the month -so will need to have cardiology followup established. (2) Dizziness: Most likely secondary to above (3) Elevated troponin: - Troponin mildly elevated at 0.105/0.08/0.09 - Likely myocardial demand ischemia due to rapid afib and is NOT ACS No wall motion abnormalities on ECHO (4) HTN (hypertension): Well controlled BPs here -discontinued amlodipine in favor of starting diltiazem for rate control -discontinued aspirin after started Eliquis -continue losartan 50 mg PO BID - Initiation of cardizem as above (5) HLD (hyperlipidemia): - Continue statin therapy (6) DM II (diabetes mellitus, type II), controlled: - A1C recently checked by PCP and reported as 7 by pt. - ISS with accuchecks while admitted - can restart metformin upon discharge (7) DVT prophylaxis: Eliquis Dispo-stable for dc to home Total Time Total Time Spent Total Time Spent (In Minutes): >30 min Total Time Includes: Examination of the Patient, Discharge Planning, Medication Reconciliation and Communication With Other Providers (Cardiology) Discharge Plan Discharge Items Patient Disposition: Home - Self-Care Reason For Visit: AFIB WITH RVR Discharge Diagnosis: Rapid atrial fibrillation Condition: Good Discharge Goals: Diagnostic testing, Improve disease control, Learn about illness and Therapeutic intervention Activity: Resume your previous activity Lifting: Gradually increase as tolerated Bathing: No limitations Exercise/Sports: Gradually increase as tolerated Driving/Machine Use: No limitations Non-emergency contact: Primary Care Provider and Barber Stylist Call non-emergency contact if: you have any medication questions and your symptoms worsen Follow-up/Referrals: Wilfredo Jordan MD [Physician] - 06/26/18 11:15 am Guera García PA-C [Primary Care Provider] - (Please, follow up with the [facility] in [place] with Guera Chacon. *A nurse from this office is to call you to arrange an appointment to see the PA within 1 weeks time. If you have any questions, call the clinic at [phone].) Diet: Heart Healthy Addtl Provider Instructions: You were admitted with lightheadedness and rapid atrial fibrillation. Your heart converted to a normal rhythm on its own. Your amlodipine was stopped and you were started on diltiazem instead for your blood pressure and to help control your heart rate. You were started on a blood thinner called Eliquis which should be taken twice a day. If you have any signs of bleeding such as vomiting blood, blood in your stool, black tarry stools, or severe headache especially after trauma, please go to the emergency room immediately. You may need to hold pressure on minor cuts and scrapes longer to get them to stop bleeding. You will stop taking your aspirin. Please stop by the cardiology office to moss picker your heart monitor either on the way home today or tomorrow. Please follow-up with the news cameraman as scheduled for you as well as your primary care provider. Prescriptions: New Eliquis 5 mg Tablet 5 mg PO BID Qty: 30 RF: 0 diltiazem HCl 120 mg capsule,extended release 24hr 120 mg PO DAILY Qty: 7 RF: 0 diltiazem HCl 120 mg capsule,extended release 24hr 120 mg PO DAILY Qty: 30 RF: 0 Continued losartan 50 mg Tablet 50 mg PO BID RF: 0 atorvastatin 80 mg Tablet 40 mg PO HS RF: 0 calcium carbonate 500 mg calcium (1,250 mg) Tablet 500 mg PO DAILY RF: 0 tamsulosin 0.4 mg Capsule 0.4 mg PO DAILY RF: 0 metformin 1,000 mg Tablet 1,000 mg PO BID RF: 0 ranitidine HCl 150 mg Tablet 150 mg PO BID RF: 0 hydrochlorothiazide 25 mg Tablet 12.5 mg PO DAILY RF: 0 Discontinued aspirin [Aspirin Low Dose] 81 mg Tablet,Delayed Release (Dr/Ec) 81 mg PO DAILY RF: 0 amlodipine 10 mg Tablet 10 mg PO DAILY RF: 0 Stand-Alone Forms: [facility] Discharge Orders: Discharge Order (Routine); Ordered 06/11/18 Ordered By: Jaclyn Foley Admission Data Admit Date/Time: 06/10/18 13:11 Attending Provider: Jaclyn Foley Admit Provider: Alvarado Szymanski Primary Care Provider: Guera García Other Providers: Alvarado Szymanski ; Wilfredo Jordan Service: Telemetry Other Interventions: Discharge Summary Assessment (RN) Last Done: 06/11/18 16:09 Pending Studies at Discharge: No DC Date/Time DO NOT enter until pt leaves facility: 06/11/18 17:51
[2018-06-11 17:59] VITALS: PULSE 73
== END 2018-06-11 17:51 | disposition home or self-care (01) | DRG 309 ==
LOC: ED 09:35 → SUATTDRO 13:11 → 2S 13:11
DX: Z87.891 Personal history of nicotine dependence; Z79.84 Long term (current) use of oral hypoglycemic drugs; I10 Essential (primary) hypertension; I48.91 Unspecified atrial fibrillation; E11.9 Type 2 diabetes mellitus without complications; I24.8 Other forms of acute ischemic heart disease; E78.5 Hyperlipidemia, unspecified